=== PATIENT | female | born 1990 | race Caucasian/White ===

== ENCOUNTER 2023-06-06 19:25 | Inpatient (IN) | payer BC, OTHER ==
[2023-06-06 20:46] VITALS: BMI 35.7
[2023-06-06 20:50] LABS: BASO % 0.1 % (0-2.0); EOS % 1.1 % (0-4.5); HEMOGLOBIN 13.6 GM/dL (10.7-15.3); LYMPH % 13.2 % (8-40); MCH 33.2 pg (25.7-33.7); MCHC 34.8 g/dl (32.0-36.0); MEAN CELL VOLUME 95.4 fl (80-96); NEUT % 77.6 % (42.8-82.8); PLATELET COUNT 203 10^3/uL (134-434); RBC 4.09 M/mm3 (3.60-5.2); RDW 13.2 % (11.6-15.6)
[2023-06-06 20:56] LABS: INR 0.91 (0.83-1.09); PROTHROMBIN TIME (PATIENT) 10.6 SEC (9.7-13.0)
[2023-06-06 20:59] LABS: ACTIVATED PTT 29.5 SECONDS (25.2-36.5)
[2023-06-06] MEDS ORDERED: DINOPROSTONE 10 MG VAGINAL SUPPOSITORY VG ONE (21:00)
[2023-06-06 21:24] LABS: POTASSIUM 4.3 mmol/L (3.5-5.1)
[2023-06-06 21:25] LABS: CALCIUM 8.2 mg/dL (8.5-10.1)
[2023-06-06 21:26] LABS: BLOOD UREA NITROGEN 10.1 mg/dL (7-18)
[2023-06-06 21:29] LABS: CREATININE 0.6 mg/dL (0.55-1.3)
[2023-06-06] MEDS ORDERED: PROMETHAZINE HCL 25 MG/1 ML VIAL IVPB ONE (22:29)
[2023-06-06] MEDS ORDERED: BUTORPHANOL TARTRATE 1 MG/ML VIAL IVPB ONE (22:29)
[2023-06-06] MEDS ORDERED: FLUCONAZOLE 150 MG TABLET PO ONE (22:32)
[2023-06-06 23:25] LABS: HIV INTERPRETATION NEGATIVE (NEGATIVE)
[2023-06-07] MEDS ORDERED: ELECTROLYTE-148 SOLN 500 ML IV ONE (01:30)
[2023-06-07] MEDS: ELECTROLYTE-148 SOLN 1,000 ML IV SCH ×2 (02:00→06:00)
[2023-06-07] MEDS ORDERED: BUTORPHANOL TARTRATE 1 MG/ML VIAL ONE (02:28)
[2023-06-07] MEDS ORDERED: PROMETHAZINE HCL 25 MG/1 ML VIAL ONE (02:28)
[2023-06-07] MEDS ORDERED: FENTANYL/BUPIVACAINE/NS/PF - PCEA - 50 ML DISP.SYRIN EP ONE ×4 (07:49→19:06)
[2023-06-07] MEDS ORDERED: NALOXONE HCL 0.4 MG/ML VIAL IVPUSH PRN (08:03)
[2023-06-07] MEDS ORDERED: FENTANYL CITRATE/PF 50 MCG/ML VIAL ONE (08:04)
[2023-06-07] MEDS ORDERED: BUPIVACAINE HCL/PF 0.25% (2.5MG/ML) 10 ML VIAL ONE ×3 (08:04→14:48)
[2023-06-07] MEDS: FENTANYL/BUPIVACAINE/NS/PF - PCEA - 50 ML DISP.SYRIN EP SCH (08:20)
[2023-06-07] MEDS ORDERED: OXYTOCIN 30 UNITS in 0.9% NS 30 UNIT/500 ML INFUS.BAG IVPB ONE (13:49)
[2023-06-07] MEDS ORDERED: OXYTOCIN 30 UNITS in 0.9% NS 30 UNIT/500 ML INFUS.BAG IVPB SCH (15:15)
[2023-06-07] MEDS ORDERED: LIDOCAINE HCL 1% PRESERVATIVE FREE - 30ML VIAL ONE (19:32)
[2023-06-07] MEDS ORDERED: OXYTOCIN 20 UNITS in 0.9% NS 20 UNIT/1,000 ML INFUS.BAG IV ONE (19:32)
[2023-06-07] MEDS ORDERED: ACETAMINOPHEN 325 MG TABLET (FP) PO PRN (20:54)
[2023-06-07] MEDS ORDERED: BENZOCAINE 20% 57 GM BOTTLE TP PRN (20:54)
[2023-06-07] MEDS ORDERED: BISACODYL 10 MG SUPP.RECT RC PRN (20:54)
[2023-06-07] MEDS ORDERED: METHYLERGONOVINE MALEATE 0.2 MG/1 ML AMP IM PRN (20:54)
[2023-06-07] MEDS ORDERED: WITCH HAZEL 50% (TUCKS) 40 PAD/JAR PAD TP PRN (20:54)
[2023-06-07] MEDS ORDERED: BENZOCAINE 28 GM HEMORRHOIDAL OINTMENT TP PRN (20:54)
[2023-06-07] MEDS ORDERED: oxyCODONE HCL 5 MG TABLET PO PRN (20:54)
[2023-06-07] MEDS ORDERED: OXYTOCIN 20 UNITS in 0.9% NS 20 UNIT/1,000 ML INFUS.BAG IV SCH (21:00)
[2023-06-08] MEDS: IBUPROFEN 600 MG TABLET (FP) PO PRN ×3 (00:06→21:36)
[2023-06-08 08:33] LABS: BASO % 0.2 % (0-2.0); EOS % 0.6 % (0-4.5); HEMATOCRIT 30.2 % (32.4-45.2); HEMOGLOBIN 10.9 GM/dL (10.7-15.3); LYMPH % 10.1 % (8-40); MCHC 35.9 g/dl (32.0-36.0); MEAN CELL VOLUME 94.7 fl (80-96); MEAN PLT VOLUME 7.9 fl (7.5-11.1); MONO % 8.1 % (3.8-10.2); PLATELET COUNT 154 10^3/uL (134-434); RBC 3.19 M/mm3 (3.60-5.2); RDW 12.8 % (11.6-15.6); WHITE BLOOD COUNT 18.7 K/mm3 (4.0-10.0)
[2023-06-08 09:11] VITALS: RESP 18
[2023-06-08] MEDS: FENTANYL/BUPIVACAINE/NS/PF - PCEA - 50 ML DISP.SYRIN EP SCH (09:13)
[2023-06-08] MEDS ORDERED: SENNOSIDES/DOCUSATE COMBO (SENNA PLUS) TABLET (UD) PO PRN (22:00)
[2023-06-09] MEDS: IBUPROFEN 600 MG TABLET (FP) PO PRN (05:41)
[2023-06-09 08:58] VITALS: BP 112/73; PULSE 92; TEMP 97.8
== END 2023-06-09 12:40 | disposition home or self-care (01) | DRG 807 ==
LOC: JLDR 19:25 → J3W 06-07 22:46
PROVIDERS: ADMIT Obstetrics & Gynecology; ATTEND Obstetrics & Gynecology
PROC: 10E0XZZ Delivery of Products of Conception, External Approach (ICD-10-PCS; principal; 2023-06-07)
PROC: 0KQM0ZZ Repair Perineum Muscle, Open Approach (ICD-10-PCS; 2023-06-07)
DX: O48.0 Post-term pregnancy (principal); Z37.0 Single live birth; O70.1 Second degree perineal laceration during delivery; Z3A.40 40 weeks gestation of pregnancy
CPT/HCPCS: 36415; 80048; 85025; 85610; 85730; 86780; 86850; 86900; 86901; 87389